=== PATIENT | female | born 1930 | race Caucasian/White ===

== ENCOUNTER → 2016-05-05 | Outpatient (CLI) | payer OTHER ==
[~2016-05-05] MED LIST: APIX2.5T PO; CALCTAB25 PO; CARB45TA PO; CETI1TAB36 PO; FLU05NSL; FLUO0.05 EX; FURO20TA PO; LOVA40TA72 PO; MET50T PO; MULT-195 OR; MULT-908 PO; POT10T PO; TRAM50TA2 PO
[2016-05-05 16:31] LABS: BUN/Creatinine Ratio 28.7; Calcium 9.7 mg/dL (8.5-10.1); Magnesium 2.3 mg/dL (1.6-2.6); Potassium 3.3 mmol/L (3.5-5.1)
== END | disposition home or self-care (01) ==
LOC: LAB 11:42
PROVIDERS: ATTEND Internal Medicine Cardiovascular Disease
DX: I10 Essential (primary) hypertension (principal); E83.40 Disorders of magnesium metabolism, unspecified; D64.9 Anemia, unspecified
CPT/HCPCS: 36415; 80048; 82607; 83735